=== PATIENT | male | born 1960 | race Hispanic/Latino ===

== ENCOUNTER 2017-03-06 22:07 | Emergency (ER) | payer OTHER ==
[2017-03-06 22:48] VITALS: BMI 26.8
[2017-03-06 22:51] VITALS: RESP 18
[2017-03-06] MEDS ORDERED: Oxycodone/Acetaminophen 5/325 mg Tab PO STA (23:34)
[2017-03-07] MEDS: Sodium Chloride 0.9% 500 ML IV STA ×2 (00:13→01:11)
--- NOTE | 2017-03-07 00:19 | ED PDOC ---
Arrival/HPI <Thomas Nash - Last Filed: 03/07/17 01:30> - General Historian: Patient - History of Present Illness Symptom Onset: Gradual Symptom Course: Unchanged Activities at Onset: Rest, Light Context: Home <Nerissa Vargas - Last Filed: 03/07/17 01:54> - General Chief Complaint: Dental Pain Time Seen by Provider: 03/06/17 23:34 - History of Present Illness Narrative History of Present Illness (Text): 03/06/17 23:30 56 year old male who presents to the Emergency department complaining of 2 day history of right-sided facial swelling and erythema. Patient states 2 days prior he was seen by a dentist and had a tooth extraction performed. Patient states he had some slight swelling prior to extractions but notes since then he has developed redness with worsening swelling and pain to the right face. Patient denies any trismus or drooling. Patient states he was placed on antibiotics for the past 2 days but is unsure of the name. Patient also denies any fever, chills, chest pain, shortness of breath, or any other complaints. Patient states he does not have any medical problems but notes he does not see a primary doctor. Patient was told he had high blood pressure, but notes he has attempted to manage it by diet. (Nerissa Vargas) Past Medical History - Provider Review Nursing Documentation Reviewed: Yes - Travel History Have you recently traveled outside [place] w/in the past 3 mons?: No - Infectious Disease Hx of Infectious Diseases: None - Tetanus Immunization Tetanus Immunization: Unknown - Cardiac Hx Hypertension: Yes - Psychiatric Hx Substance Use: No - Surgical History Hx Appendectomy: Yes - Anesthesia Hx Anesthesia: Yes Hx Anesthesia Reactions: No Hx Malignant Hyperthermia: No <Nerissa Vargas - Last Filed: 03/07/17 01:54> Family/Social History - Physician Review Nursing Documentation Reviewed: Yes Family/Social History: Unknown Family HX Smoking Status: Never Smoked Hx Alcohol Use: No Hx Substance Use: No <Nerissa Vargas - Last Filed: 03/07/17 01:54> Allergies/Home Meds <Thomas Nash - Last Filed: 03/07/17 01:30> <Nerissa Vargas - Last Filed: 03/07/17 01:54> Allergies/Adverse Reactions: Allergies Penicillins Allergy (Verified 08/23/17 22:48) RASH Home Medications: Home Meds Medication Instructions Recorded Confirmed No Known Home Med 03/06/17 03/06/17 Review of Systems - Physician Review All systems were reviewed & negative as marked: Yes - Review of Systems Constitutional: absent: Fevers ENT: Other (+right-sided facial swelling) Respiratory: Normal. absent: SOB, Cough Cardiovascular: Normal. absent: Chest Pain Gastrointestinal: Normal. absent: Abdominal Pain, Diarrhea, Nausea, Vomiting Musculoskeletal: absent: Back Pain, Neck Pain Skin: Normal. absent: Rash Neurological: Normal. absent: Headache, Dizziness Psychiatric: Normal. absent: Anxiety, Depression <AzoiaNerissa T - Last Filed: 03/07/17 01:54> Physical Exam Vital Signs Reviewed: Yes Temperature: Afebrile Blood Pressure: Normal Pulse: Regular Respiratory Rate: Normal Appearance: Positive for: Well-Appearing, Non-Toxic, Comfortable Pain Distress: None Mental Status: Positive for: Alert and Oriented X 3 - Systems Exam Head: Present: Normocephalic, Swelling (Right-sided facial edema with erythema, warmth, and induration extending from right inferior orbite to mandible.) Pupils: Present: PERRL Extroacular Muscles: Present: EOMI Conjunctiva: Present: Normal Ears: Present: Normal, NORMAL TM, Normal Canal. No: Erythema Mouth: Present: Moist Mucous Membranes, Normal Tounge (No swelling to tongue or floor of mouth), Other (Right upper molar (#17th tooth) extraction site with tenderness to gingiva around extraction site with some induration, no erythema, no active bleeding. No erythma noted within the mouth). No: Drooling, Trismus Pharnyx: Present: Normal. No: ERYTHEMA, EXUDATE, TONSILS ENLARGED, Uvular Deviation, Muffled/Hoarse Voice, Strider Nose (External): Present: Atraumatic Nose (Internal): Present: Normal Inspection Neck: Present: Normal Range of Motion. No: Meningeal Signs, MIDLINE TENDERNESS , Paraspinal Tenderness, Lymphadenopathy Respiratory/Chest: Present: Clear to Auscultation, Good Air Exchange. No: Respiratory Distress, Accessory Muscle Use Cardiovascular: Present: Regular Rate and Rhythm, Normal S1, S2. No: Murmurs Abdomen: Present: Normal Bowel Sounds. No: Tenderness, Distention, Peritoneal Signs Neurological: Present: GCS=15, Speech Normal Skin: Present: Warm, Dry, Normal Color. No: Rashes Psychiatric: Present: Alert, Oriented x 3, Normal Insight, Normal Concentration <Nerissa Vargas - Last Filed: 03/07/17 01:54> Vital Signs Temp Pulse Resp BP Pulse Ox 03/07/17 01:50 99.2 F 81 18 162/104 H 95 03/06/17 22:50 99.5 F 94 H 18 145/114 H 98 Medical Decision Making <Thomas Nash - Last Filed: 03/07/17 01:30> <Nerissa Vargas - Last Filed: 03/07/17 01:54> ED Course and Treatment: 03/06/17 23:30 Impression: 56 year old male complaining of right-sided facial swelling/erythema x 2 days s /p dental extraction. Plan: -- CBC -- CMP -- Blood cultures -- CT Maxillofacial with IV contrast -- Percocet for pain -- 500 cc NS -- Reassess and disposition Progress Notes: cbc; wbc:14.[address] maxillofacial bones; FINDINGS: Bones/joints: No acute fracture. Absence of the right second molar (tooth #17) with bony erosion and soft tissue air suggesting a dental space abscess. Soft tissues: Moderate soft tissue swelling from the right infraorbital rim to the level of the mandible. Infiltration of the soft tissues, without a discrete abscess. Orbits: Preserved. Sinuses: Mucoperiosteal thickening within the right maxillary sinus. Retention cyst within the left maxillary sinus. No air-fluid levels. IMPRESSION: A dental space abscess at the right second molar with infiltration of the surrounding soft tissues, without a discrete abscess. Inflammatory maxillary sinus disease. blood cultures pending clindamycin started IV. 03/07/17 01:[address] Sunshine (dental resident at [facility]; accepts transfer. (attending physician dr. Dotson.) case discussed with Beverly charge nurse in [facility] ER. accepting ER physician dr. Quintana. consent for transfer obtained. Results were discussed with the patient in depth. impression; dental abscess, facial cellulitis, leukocytosis transfer to [facility]. (Nerissa Vargas) - Lab Interpretations Lab Results: 03/07/17 00:05 08/24/17 00:05 Lab Results 03/07/17 00:05: WBC 14.2 H, RBC 4.99, Hgb 14.8, Hct 43.0, MCV 86.2, MCH 29.7, MCHC 34.4, RDW 13.8, Plt Count 273, MPV 11.6 H, Gran % 68.1 H, Lymph % (Auto) 19.9 L, [place] % (Auto) 10.4 H, Eos % (Auto) 1.2 L, Baso % (Auto) 0.4, Gran # 9.67 H, Lymph # 2.8, [place] # 1.5 H, Eos # 0.2, Baso # 0.05 03/07/17 00:05: Sodium 140, Potassium 3.8, Chloride 101, Carbon Dioxide 28, Anion Gap 15, BUN 14, Creatinine 1.1, Est GFR ( Amer) > 60, Est GFR (Non- Af Amer) > 60, Random Glucose 114 H, Calcium 9.9, Total Bilirubin 1.0, AST 43, ALT 48, Alkaline Phosphatase 70, Total Protein 8.4 H, Albumin 4.5, Globulin 3.9 , Albumin/Globulin Ratio 1.2 - RAD Interpretation Radiology Orders: 03/06/17 23:35 MAXILLOFACIAL W/CONTRAST [CT] Stat - Medication Orders Current Medication Orders: Clindamycin Phosphate 900 mg/ (Sodium Chloride) 106 mls @ 106 mls/hr IVPB STAT STA PRN Reason: Protocol Stop: 03/07/17 02:03 Last Admin: 03/07/17 01:40 Dose: 106 mls/hr Discontinued Medications Sodium Chloride (Sodium Chloride 0.9%) 500 mls @ 999 mls/hr IV .Q31M STA Stop: 03/07/17 00:05 Last Admin: 03/07/17 01:11 Dose: 999 mls/hr Oxycodone/Acetaminophen (Percocet 5/325 Mg Tab) 1 tab PO STAT STA Stop: 03/06/17 23:35 Last Admin: 03/07/17 00:12 Dose: 1 tab - PA / WET PLANT OPERATOR / Resident Statement SUSAN has reviewed & agrees with the documentation as recorded. SUSAN has examined the patient and agrees with the treatment plan. <Thomas Nash - Last Filed: 03/07/17 01:30> - Scribe Statement The provider has reviewed the documentation as recorded by the Scribe <Nerissa Vargas - Last Filed: 03/07/17 01:54> - Scribe Statement Yadira Angela Provider Scribe Attestation: All medical record entries made by the Scribe were at my direction and personally dictated by me. I have reviewed the chart and agree that the record accurately reflects my personal performance of the history, physical exam, medical decision making, and the department course for this patient. I have also personally directed, reviewed, and agree with the discharge instructions and disposition. (Nerissa Vargas) Disposition/Present on Arrival <Thomas Nash - Last Filed: 03/07/17 01:30> - Present on Arrival Any Indicators Present on Arrival: No History of DVT/PE: No History of Uncontrolled Diabetes: No Urinary Catheter: No History of Decub. Ulcer: No History Surgical Site Infection Following: None - Disposition Have Diagnosis and Disposition been Completed?: Yes Disposition Time: 01:49 Patient Plan: Transfer To ([facility] (accepting physician Dr. Quintana/ Dr. dotson) <Nerissa Vargas - Last Filed: 03/07/17 01:54> - Disposition Diagnosis: Dental abscess, Facial cellulitis, Leukocytosis, Hypertension Disposition: Trans to Other Acute Care Hosp Patient Problems: Current Active Problems Problem Status Onset Dental abscess Acute Facial cellulitis Acute Leukocytosis Acute Condition: FAIR Referrals: [facility] Kelley Reshira, [Primary Care Provider] - Follow up with primary Forms: [employer] ([employer])
[2017-03-07 00:37] LABS: ALB/GLOB RATIO 1.2 (1.1-1.8); ALKALINE PHOSPHATASE 70 U/L (38-133); ALT/SGPT 48 U/L (7-56); AST/SGOT 43 U/L (15-59); BLOOD UREA NITROGEN 14 mg/dL (7-21); CALCIUM 9.9 mg/dL (8.4-10.5); CARBON DIOXIDE 28 mmol/L (21-33); CHLORIDE 101 mmol/L (95-110); GFR AFRICAN-AMERICAN > 60; GLUCOSE,RANDOM 114 mg/dL (70-110); POTASSIUM 3.8 mmol/L (3.6-5.0); SODIUM 140 mmol/L (132-148); TOTAL PROTEIN 8.4 g/dL (5.8-8.3)
[2017-03-07 00:44] LABS: BASO # 0.05 K/mm3 (0.0-2.0); BASO % 0.4 % (0.0-3.0); EOS # 0.2 (0.0-0.7); EOS % 1.2 % (1.5-5.0); GRAN # 9.67 (1.4-6.5); GRAN % 68.1 % (50.0-68.0); LYMPH # 2.8 (1.2-3.4); LYMPH % 19.9 % (22.0-35.0); MEAN CELL VOLUME 86.2 fl (80.0-105.0); MEAN CORPUSCULAR HEMOGLOBIN 29.7 pg (25.0-35.0); MEAN CORPUSCULAR HGB CONC 34.4 g/dl (31.0-37.0); MEAN PLATELET VOLUME 11.6 fl (7.0-11.0); MONO # 1.5 (0.1-0.6); MONO % 10.4 % (1.0-6.0); RED CELL DISTRIBUTION WIDTH 13.8 % (11.5-14.5); WHITE BLOOD COUNT 14.2 10^3/ul (4.5-11.0)
--- NOTE | 2017-03-07 00:59 | CT ---
EXAM: CT Maxillofacial With Intravenous Contrast CLINICAL HISTORY: 56 years old, male; Signs and symptoms; Mass, lump, or swelling; Maxilla; Patient HX: Tooth extraction. Exam was performed with out contrast media. ; Additional info: Right sided facial swelling/erythema S/P extractio TECHNIQUE: Axial computed tomography images of the face with intravenous contrast. All CT scans at this facility use one or more dose reduction techniques, viz.: automated exposure control; ma/kV adjustment per patient size (including targeted exams where dose is matched to indication; i.e. head); or iterative reconstruction technique. Coronal and sagittal reformatted images were created and reviewed. CONTRAST: 0 mL of with out administered intravenously. COMPARISON: No relevant prior studies available. FINDINGS: Bones/joints: No acute fracture. Absence of the right second molar (tooth #17) with bony erosion and soft tissue air suggesting a dental space abscess. Soft tissues: Moderate soft tissue swelling from the right infraorbital rim to the level of the mandible. Infiltration of the soft tissues, without a discrete abscess. Orbits: Preserved. Sinuses: Mucoperiosteal thickening within the right maxillary sinus. Retention cyst within the left maxillary sinus. No air-fluid levels. IMPRESSION: A dental space abscess at the right second molar with infiltration of the surrounding soft tissues, without a discrete abscess. Inflammatory maxillary sinus disease.
[2017-03-07 01:52] VITALS: BP 162/104; PULSE 81; TEMP 99.2; O2SAT 95
== END 2017-03-07 02:29 | disposition short-term general hospital (02) ==
LOC: ED 22:07
DX: K04.7 Periapical abscess without sinus (principal); L03.211 Cellulitis of face; I10 Essential (primary) hypertension; D72.829 Elevated white blood cell count, unspecified
CPT/HCPCS: 70488; 80053; 85025; 87040; 96361; 96365; 99283; J7040

== ENCOUNTER 2017-04-21 20:43 | Inpatient (IN) | payer OTHER ==
[2017-04-21 20:48] VITALS: BMI 25.7
--- NOTE | 2017-04-21 21:17 | ED PDOC ---
Arrival/HPI - General Chief Complaint: Male Genitourinary Time Seen by Provider: 04/21/17 21:08 Historian: Patient - History of Present Illness Narrative History of Present Illness (Text): 04/21/17 21:12 Alban Melchor is a 56 year old male, whose past medical history includes kidney stones, who presents to the emergency department complaining of sharp LLQ abdominal pain and left-sided flank pain for 2 days. Patient also notes that he has noticed some blood in his urine. Patient denies any fever, chills, chest pain, shortness of breath, nausea, vomiting, diarrhea, neck pain, headache , dizziness, or any other complaints. Time/Duration: < week Symptom Onset: Gradual Symptom Course: Unchanged Severity Level: Mild Activities at Onset: Light Context: Home Past Medical History - Provider Review Nursing Documentation Reviewed: Yes - Infectious Disease Hx of Infectious Diseases: None - Tetanus Immunization Tetanus Immunization: Unknown - Cardiac Hx Hypertension: Yes - Pulmonary Hx Respiratory Disorders: No - Neurological Hx Neurological Disorder: No - HEENT Hx HEENT Disorder: No - Renal Other/Comment: stones - Endocrine/Metabolic Hx Endocrine Disorders: No - Hematological/Oncological Hx Blood Disorders: No - Integumentary Hx Dermatological Disorder: No - Musculoskeletal/Rheumatological Hx Musculoskeletal Disorders: No - Gastrointestinal Hx Gastrointestinal Disorders: No - Genitourinary/Gynecological Hx Genitourinary Disorders: No - Psychiatric Hx Psychophysiologic Disorder: No Hx Substance Use: No - Surgical History Hx Appendectomy: Yes - Anesthesia Hx Anesthesia: Yes Hx Anesthesia Reactions: No Hx Malignant Hyperthermia: No Family/Social History - Physician Review Nursing Documentation Reviewed: Yes Family/Social History: No Known Family HX Smoking Status: Never Smoked Hx Alcohol Use: No Hx Substance Use: No Allergies/Home Meds Allergies/Adverse Reactions: Allergies Penicillins Allergy (Verified 04/21/17 20:48) RASH Home Medications: Home Meds Medication Instructions Recorded Confirmed No Known Home Med 03/06/17 04/21/17 Review of Systems - Physician Review All systems were reviewed & negative as marked: Yes - Review of Systems Constitutional: absent: Fevers, Night Sweats Eyes: absent: Vision Changes ENT: absent: Hearing Changes Respiratory: absent: SOB, Cough Cardiovascular: absent: Chest Pain Gastrointestinal: Abdominal Pain Genitourinary Male: Urinary Output Changes Musculoskeletal: Back Pain Skin: absent: Rash, Pruritis Neurological: absent: Headache, Dizziness Endocrine: absent: Diaphoresis Hemo/Lymphatic: absent: Adenopathy Psychiatric: absent: Depression Physical Exam Vital Signs Reviewed: Yes Vital Signs Temp Pulse Resp BP Pulse Ox 04/22/17 03:02 18 99 04/22/17 02:56 98.9 F 95 H 17 140/89 99 04/21/17 20:49 99.5 F 86 18 176/107 H 98 04/21/17 20:48 99.5 F 91 H 18 176/107 H 98 Temperature: Afebrile Blood Pressure: Hypertensive Pulse: Tachycardic Respiratory Rate: Normal Appearance: Positive for: Well-Appearing, Non-Toxic, Comfortable Pain Distress: None Mental Status: Positive for: Alert and Oriented X 3 - Systems Exam Head: Present: Atraumatic, Normocephalic Pupils: Present: PERRL Extroacular Muscles: Present: EOMI Conjunctiva: Present: Normal Mouth: Present: Moist Mucous Membranes Neck: Present: Normal Range of Motion Respiratory/Chest: Present: Clear to Auscultation, Good Air Exchange. No: Respiratory Distress, Accessory Muscle Use Cardiovascular: Present: Regular Rate and Rhythm, Normal S1, S2. No: Murmurs Abdomen: Present: Normal Bowel Sounds. No: Tenderness, Distention, Peritoneal Signs Back: Present: Normal Inspection, CVA Tenderness Upper Extremity: Present: Normal Inspection. No: Cyanosis, Edema Lower Extremity: Present: Normal Inspection. No: Edema Neurological: Present: GCS=15, CN II-XII Intact, Speech Normal Skin: Present: Warm, Dry, Normal Color. No: Rashes Psychiatric: Present: Alert, Oriented x 3, Normal Insight, Normal Concentration Medical Decision Making ED Course and Treatment: 04/21/17 21:12 Impression: 56 year old male complaining of sharp LLQ abdominal pain and left-sided flank pain since yesterday. Differential Diagnosis included but are not limited to: Kidney stones Plan: -- Abdomen and Pelvis CT w/o contrast -- Urinalysis -- Labs -- Toradol and IV fluids -- Reassess and disposition Prior Visits: Notes and results from previous visits were reviewed. Patient last seen in the ED on 03/06/17 for 2 day history of right-sided facial swelling and erythema. Patient was transferred to [facility]. Progress Notes: 04/21/17 23:59 Case discussed with residential sales rep and Dr. Church, who accepts patient to hospitalist service. 04/22/17 00:12 CT Abdomen and Pelvis Without Intravenous Contrast Creator : KEITH DOMINGO FINDINGS: Lower thorax: The bilateral lung bases are clear. ABDOMEN: Liver: No acute findings Gallbladder and bile ducts: No acute finding. No calcified stones. No intra-extrahepatic biliary ductal dilation. Pancreas: Limited evaluation secondary to the lack of intravenous contrast. Spleen: No acute findings. Adrenals: No acute findings. Kidneys and ureters: Left sided hydroureteronephrosis extending to the distal left ureter where a 6 mm stone is identified. The right kidney and ureter are unremarkable. PELVIS: Bladder: No acute findings. Reproductive: No acute findings. Appendix: The appendix is not definitively visualized, however no pericecal inflammatory change is identified to suggest the presence of acute appendicitis. ABDOMEN and PELVIS: Stomach and bowel: No acute findings. Peritoneum: No acute findings. Lymph nodes: Limited evaluation without intravenous contrast. Vasculature: No aortic aneurysm. Bones: No acute fracture. IMPRESSION: Left-sided hydroureteronephrosis secondary to a 6 mm stone in the distal left ureter. - Lab Interpretations Lab Results: 04/21/17 21:40 04/21/17 21:40 Lab Results 04/21/17 21:40: WBC 11.1 H D, RBC 4.87, Hgb 14.2, Hct 42.2, MCV 86.7, MCH 29.2, MCHC 33.6, RDW 13.9, Plt Count 238, MPV 11.2 H 04/21/17 21:40: Sodium 142, Potassium 3.8, Chloride 103, Carbon Dioxide 29, Anion Gap 14, BUN 19, Creatinine 1.4, Est GFR ( Amer) > 60, Est GFR (Non- Af Amer) 53, Random Glucose 89, Calcium 9.7, Total Bilirubin 1.0, AST 43, ALT 54 , Alkaline Phosphatase 58, Total Protein 8.0, Albumin 4.7, Globulin 3.3, Albumin /Globulin Ratio 1.4 04/21/17 21:40: Urine Color Yellow, Urine Appearance Sl cloudy, Urine pH 7.5, Ur Specific [place] 1.015, Urine Protein Trace H, Urine Glucose (UA) Negative, Urine Ketones Negative, Urine Blood Large H, Urine Nitrate Negative, Urine Bilirubin Negative, Urine Urobilinogen 0.2, Ur Leukocyte Esterase Negative, Urine RBC Tntc, Urine WBC 2 - 5, Ur Epithelial Cells 3 - 4, Urine Bacteria Mod I have reviewed the lab results: Yes - RAD Interpretation Radiology Orders: 04/21/17 21:15 ABD & PELVIS W/O PO OR IV CONT [CT] Stat - Medication Orders Current Medication Orders: Acetaminophen (Tylenol 325mg Tab) 650 mg PO Q6H PRN PRN Reason: Pain, Mild (1-3) Hydromorphone HCl (Dilaudid) 0.5 mg IVP Q6H PRN PRN Reason: Pain, severe (8-10) Sodium Chloride (Sodium Chloride 0.9%) 1,000 mls @ 100 mls/hr IV .Q10H VEE Last Admin: 04/21/17 21:44 Dose: 100 mls/hr eMAR Start Stop Document 04/21/17 21:44 YP (Rec: 04/21/17 21:44 YP [id number]) Intravenous Solution Start Date 04/21/17 Start Time 21:44 Sodium Chloride (Sodium Chloride 0.9%) 1,000 mls @ 100 mls/hr IV .Q10H VEE Pantoprazole Sodium (Protonix Inj) 40 mg IVP DAILY VEE Tramadol/Acetaminophen (Ultracet 37.5/325 Mg) 1 tab PO Q6H PRN PRN Reason: Pain, moderate (4-7) Last Admin: 04/22/17 03:47 Dose: 1 tab MAR Pain Assessment Document 04/22/17 03:47 KT (Rec: 04/22/17 03:48 [id number] Pain Reassessment Is this a pain reassessment? No Presence of Pain Presence of Pain Yes Pain Scale Used Pain Scale Used Numeric Location Left, Right or Bilateral Left Upper or Lower Lower Pain Location Body Site Abdomen Discontinued Medications Hydralazine HCl (Apresoline) 10 mg PO ONCE ONE Stop: 04/22/17 03:48 Last Admin: 04/22/17 03:58 Dose: 10 mg MAR Pulse and Blood Pressure Document 04/22/17 03:58 KT (Rec: 04/22/17 03:58 KT [id number]) Pulse Pulse Rate (60-90) 78 Blood Pressure Blood Pressure (100/60-150/90) 166/114 Ketorolac Tromethamine (Toradol) 30 mg IVP ONCE ONE Stop: 04/21/17 21:16 Last Admin: 04/21/17 21:44 Dose: 30 mg MAR Pain Assessment Document 04/21/17 21:44 YP (Rec: 04/21/17 21:45 YP [id number]) Pain Reassessment Is this a pain reassessment? No Sleep Is patient sleeping during reassessment? No Presence of Pain Presence of Pain Yes IVP Administration Document 04/21/17 21:44 YP (Rec: 04/21/17 21:45 YP [id number]) Charges for Administration # of IVP Administrations 1 Morphine Sulfate (Morphine) 4 mg IVP STAT STA Stop: 04/21/17 23:40 Last Admin: 04/21/17 23:53 Dose: 4 mg MAR Pain Assessment Document 04/21/17 23:53 [facility] (Rec: 04/21/17 23:[email or web address] Pain Reassessment Is this a pain reassessment? No Sleep Is patient sleeping during reassessment? No Presence of Pain Presence of Pain Yes Pain Scale Used Pain Scale Used Numeric Location Pain Location Body Site Back Description Description Constant Intensity of Pain at present 9 Pain Behavior Facial Grimacing Alleviating Factors/Management Position Change Techniques Alleviating Factors Medication IVP Administration Document 04/21/17 23:53 [facility] (Rec: 04/21/17 23:[email or web address] Charges for Administration # of IVP Administrations 1 Ondansetron HCl (Zofran Inj) 4 mg IVP ONCE ONE Stop: 04/21/17 23:40 Last Admin: 04/22/17 02:58 Dose: Not Given Non-Admin Reason: Patient Refused IVP Administration Document 04/22/17 02:58 [facility] (Rec: 04/22/17 02:[email or web address] Charges for Administration # of IVP Administrations 1 - Scribe Statement The provider has reviewed the documentation as recorded by the Libertadiblindsey Avendano Provider Scribe Attestation: All medical record entries made by the Scribe were at my direction and personally dictated by me. I have reviewed the chart and agree that the record accurately reflects my personal performance of the history, physical exam, medical decision making, and the department course for this patient. I have also personally directed, reviewed, and agree with the discharge instructions and disposition. Disposition/Present on Arrival - Present on Arrival Any Indicators Present on Arrival: No History of DVT/PE: No History of Uncontrolled Diabetes: No Urinary Catheter: No History of Decub. Ulcer: No History Surgical Site Infection Following: None - Disposition Have Diagnosis and Disposition been Completed?: Yes Diagnosis: Renal colic on right side, Intractable pain Disposition: HOSPITALIZED Disposition Time: 23:57 Patient Plan: Observation Patient Problems: Current Active Problems Problem Status Onset Intractable pain Acute Renal colic on right side Acute Condition: STABLE
[2017-04-21] MEDS: Sodium Chloride 0.9% 1,000 ML IV SCH (21:44)
[2017-04-21 22:06] LABS: ALB/GLOB RATIO 1.4 (1.1-1.8); ALKALINE PHOSPHATASE 58 U/L (38-126); ALT/SGPT 54 U/L (7-56); AST/SGOT 43 U/L (17-59); BLOOD UREA NITROGEN 19 mg/dL (7-21); CALCIUM 9.7 mg/dL (8.4-10.5); CARBON DIOXIDE 29 mmol/L (21-33); CHLORIDE 103 mmol/L (98-107); GFR AFRICAN-AMERICAN > 60; GLUCOSE,RANDOM 89 mg/dL (70-110); POTASSIUM 3.8 mmol/L (3.6-5.0); SODIUM 142 mmol/L (132-148)
[2017-04-21 22:11] LABS: HEMATOCRIT 42.2 % (42.0-52.0); MEAN CELL VOLUME 86.7 fl (80.0-105.0); MEAN CORPUSCULAR HEMOGLOBIN 29.2 pg (25.0-35.0); MEAN CORPUSCULAR HGB CONC 33.6 g/dl (31.0-37.0); MEAN PLATELET VOLUME 11.2 fl (7.0-11.0); RED CELL DISTRIBUTION WIDTH 13.9 % (11.5-14.5); WHITE BLOOD COUNT 11.1 10^3/ul (4.5-11.0)
[2017-04-21 22:12] LABS: PH,URINE 7.5 (4.7-8.0); URINE BILIRUBIN NEGATIVE (NEGATIVE); URINE BLOOD LARGE (NEGATIVE); URINE GLUCOSE (UA) NEGATIVE (NEGATIVE); URINE KETONE NEGATIVE (NEGATIVE); URINE LEUKOCYTE ESTERASE NEGATIVE Leu/uL (NEGATIVE); URINE PROTEIN TRACE mg/dL (<30 mg/dL); URINE UROBILINOGEN 0.2 E.U./dL (<1 E.U./dL)
[2017-04-21 22:14] LABS: URINE APPEARANCE SL CLOUDY (CLEAR); URINE COLOR YELLOW (YELLOW)
[2017-04-21 22:26] LABS: URINE BACTERIA MOD (NEG); URINE RBC TNTC /hpf (0-2)
--- NOTE | 2017-04-21 23:20 | CT ---
EXAM: CT Abdomen and Pelvis Without Intravenous Contrast CLINICAL HISTORY: 56 years old, male; Pain; Abdominal pain; Acute; Additional info: Left flank pain TECHNIQUE: Axial computed tomography images of the abdomen and pelvis without intravenous contrast. All CT scans at this facility use one or more dose reduction techniques, viz.: automated exposure control; ma/kV adjustment per patient size (including targeted exams where dose is matched to indication; i.e. head); or iterative reconstruction technique. Coronal and sagittal reformatted images were created and reviewed. COMPARISON: No relevant prior studies available. FINDINGS: Lower thorax: The bilateral lung bases are clear. ABDOMEN: Liver: No acute findings Gallbladder and bile ducts: No acute finding. No calcified stones. No intra-extrahepatic biliary ductal dilation. Pancreas: Limited evaluation secondary to the lack of intravenous contrast. Spleen: No acute findings. Adrenals: No acute findings. Kidneys and ureters: Left sided hydroureteronephrosis extending to the distal left ureter where a 6 mm stone is identified. The right kidney and ureter are unremarkable. PELVIS: Bladder: No acute findings. Reproductive: No acute findings. Appendix: The appendix is not definitively visualized, however no pericecal inflammatory change is identified to suggest the presence of acute appendicitis. ABDOMEN and PELVIS: Stomach and bowel: No acute findings. Peritoneum: No acute findings. Lymph nodes: Limited evaluation without intravenous contrast. Vasculature: No aortic aneurysm. Bones: No acute fracture. IMPRESSION: Left-sided hydroureteronephrosis secondary to a 6 mm stone in the distal left ureter.
[2017-04-21] MEDS ORDERED: Morphine 4 mg/ml ISec IVP STA (23:39)
[2017-04-22] MEDS ORDERED: TraMADol/Apap 37.5/325 mg Tab PO PRN (00:42)
[2017-04-22] MEDS ORDERED: HYDROmorphone 0.5 mg/0.5 ml ISec IVP PRN ×2 (00:42→12:01)
--- NOTE | 2017-04-22 01:05 | CP.PCM.HP ---
<ADRIANNA ALFARO - Last Filed: 04/22/17 01:20> History of Present Illness - History of Present Illness History of Present Illness: CC: Left Flank Pain HPI: Pt is a 56 yo male with PMH of nephrolithiasis and diet controlled HTN presents with 2 day history of sharp and constant left flank pain. Pt states that left flank pain was of insidious onset and radiates to his left groin. Today, patient noticed blood in his urine. Pt denies dysuria or increased flank pain while urinating. Pt took Mobic today for the pain, which provided minimal relief. Pt reports he had a similar instance of left flank pain 4 years ago, in which he was evaluated at a hospital. He said that the stone was small and resolved without surgical/procedural intervention. Pt denied CP, SOB, n/v/d, abdominal other than left groin, constipation, fever, chills, dizziness, [place], fatigue, discharge, or shayla blood. PMD: None PMHx: nephrolithiasis, diet-controlled HTN Surg: None FHx: Non-contributory All: Penicillin (angioedema) SH: Denied tobacco, EtOH, and Illicit Drug use Medications: none Present on Admission - Present on Admission Any Indicators Present on Admission: No Review of Systems - Review of Systems All systems: reviewed and no additional remarkable complaints except (what is stated in HPI.) Past Patient History - Infectious Disease Hx of Infectious Diseases: None - Tetanus Immunizations Tetanus Immunization: Unknown - Past Social History Smoking Status: Never Smoked - CARDIAC Hx Hypertension: Yes - PULMONARY Hx Respiratory Disorders: No - NEUROLOGICAL Hx Neurological Disorder: No - HEENT Hx HEENT Problems: No - RENAL Other/Comment: stones - ENDOCRINE/METABOLIC Hx Endocrine Disorders: No - HEMATOLOGICAL/ONCOLOGICAL Hx Blood Disorders: No - INTEGUMENTARY Hx Dermatological Problems: No - MUSCULOSKELETAL/RHEUMATOLOGICAL Hx Musculoskeletal Disorders: No - GASTROINTESTINAL Hx Gastrointestinal Disorders: No - GENITOURINARY/GYNECOLOGICAL Hx Genitourinary Disorders: No - PSYCHIATRIC Hx Psychophysiologic Disorder: No Hx Substance Use: No - SURGICAL HISTORY Hx Appendectomy: Yes - ANESTHESIA Hx Anesthesia: Yes Hx Anesthesia Reactions: No Hx Malignant Hyperthermia: No Meds Allergies/Adverse Reactions: Allergies Allergy/AdvReac Type Severity Reaction Status Date / Time Penicillins Allergy RASH Verified 04/21/17 20:48 Physical Exam - Constitutional Appears: No Acute Distress - Head Exam Head Exam: ATRAUMATIC, NORMOCEPHALIC - Eye Exam Eye Exam: EOMI, PERRL - ENT Exam ENT Exam: Mucous Membranes Moist - Neck Exam Neck exam: Positive for: Full Rom. Negative for: Lymphadenopathy, Tenderness, Thyromegaly - Respiratory Exam Respiratory Exam: Clear to Auscultation Bilateral. absent: Rales, Rhonchi, Wheezes - Cardiovascular Exam Cardiovascular Exam: RRR. absent: Diastolic murmur, Gallop, Rubs, Systolic Murmur - GI/Abdominal Exam GI & Abdominal Exam: Normal Bowel Sounds, Soft. absent: Distended, Guarding, Rebound, Tenderness - Extremities Exam Extremities exam: Positive for: normal inspection - Back Exam Back exam: CVA tenderness (L). absent: CVA tenderness (R), paraspinal tenderness, vertebral tenderness - Neurological Exam Neurological exam: Alert, CN II-XII Intact, Oriented x3 - Psychiatric Exam Psychiatric exam: Normal Affect, Normal Mood - Skin Skin Exam: Dry, Intact, Normal Color, Warm Results - Vital Signs Recent Vital Signs: Last Vital Signs Temp 99.5 F 04/21/17 20:49 Pulse 86 04/21/17 20:49 Resp 18 04/21/17 20:49 BP 176/107 H 04/21/17 20:49 Pulse Ox 98 04/21/17 20:49 - Labs Result Diagrams: 04/21/17 21:40 04/21/17 21:40 Assessment & Plan - Assessment and Plan (Free Text) Assessment: 56 yo M with PMH of nephrolithiasis admitted for evaluation and treatment for left urethrolithiasis/hydroureteronephrosis. Plan: 1. Left Ureterolithiasis, L Hydroureteronephrosis - CT showed left hydroureteronephrosis 2/2 6 mm stone in distal left ureter - UA showed large blood - Urology consulted - Strain urine - Repeat CBC in AM - Pain control 2. HTN - Possibly elevated 2/2 to pain - Heart healthy diet, 2 gm Na - Monitor 3. KRISTI - Cr 1.4 likely 2/2 to ureterolithiasis - Monitor GI/DVT PPx - Protonix - SCDs Pt was seen and discussed in detail with Dr. Church. Merrill Alfaro, PGY1 <Sanchez Church - Last Filed: 04/22/17 03:49> Results - Vital Signs Recent Vital Signs: Last Vital Signs Temp 98.9 F 04/22/17 02:56 Pulse 95 H 04/22/17 02:56 Resp 18 04/22/17 03:02 BP 140/89 04/22/17 02:56 Pulse Ox 99 04/22/17 03:02 - Labs Result Diagrams: 04/21/17 21:40 04/21/17 21:40 Attending/Attestation - Attestation I have personally seen and examined this patient.: Yes I have fully participated in the care of the patient.: Yes I have reviewed all pertinent clinical information: Yes Notes (Text): 04/22/17 03:49 Patient was seen when he was in the ER. Agree with history, physical examination, assessment and plan.
[2017-04-22] MEDS ORDERED: Sodium Chloride 0.9% 1,000 ML IV SCH ×2 (07:00→18:14)
[2017-04-22 07:56] LABS: ALB/GLOB RATIO 1.5 (1.1-1.8); BILIRUBIN,TOTAL 1.3 mg/dL (0.2-1.3); CALCIUM 9.1 mg/dL (8.4-10.5); MAGNESIUM 1.9 mg/dL (1.7-2.2); PHOSPHOROUS 3.5 mg/dL (2.5-4.5); POTASSIUM 4.1 mmol/L (3.6-5.0); TOTAL PROTEIN 7.5 g/dL (5.8-8.3)
[2017-04-22] MEDS: Sodium Chloride 0.9% 1,000 ML IV SCH ×2 (14:28→22:43)
[2017-04-23] MEDS ORDERED: Lidocaine 2% Jelly (Uro-Jet) ONE (07:43)
[2017-04-23] MEDS ORDERED: Iohexol 240 (50 ml) ONE (07:43)
[2017-04-23] MEDS ORDERED: Propofol 10 mg/ml Inj (20 ML) ONE (07:54)
[2017-04-23] MEDS ORDERED: Midazolam 2 MG/2 ML VIAL ONE (07:54)
[2017-04-23] MEDS ORDERED: cefTRIAXone 1 gm 1 GM/100 ML BAG IVPB STA (07:54)
[2017-04-23] MEDS ORDERED: Oxycodone/Acetaminophen 5/325 mg Tab PO PRN (07:55)
[2017-04-23] MEDS ORDERED: Ciprofloxacin 400mg/200ml D5W 400 MG/200 ML BAG IVPB ONE (08:06)
[2017-04-23] MEDS ORDERED: Morphine 2 mg/ml ISec IVP PRN (08:36)
[2017-04-23] MEDS ORDERED: Lactated Ringer's 500 ML IV SCH (08:45)
--- NOTE | 2017-04-23 10:08 | RAD ---
PROCEDURE: Retrograde pyelogram HISTORY: LT URETERAL STONE COMPARISON: TECHNIQUE: Fluoroscopy was provided in the operating room. 24 seconds of fluoro time were utilized. 7 images were submitted FINDINGS: The study shows placement of a left ureteral stent IMPRESSION: As above
[2017-04-23] MEDS: Sodium Chloride 0.9% 1,000 ML IV SCH (10:43)
[2017-04-23 15:05] VITALS: RESP 20; TEMP 98
[2017-04-23 15:07] VITALS: O2SAT 98
[2017-04-23 15:36] VITALS: BP 148/104; PULSE 90
--- NOTE | 2017-04-23 15:51 | CP.PCM.DIS ---
<Jeronimo Fatima - Last Filed: 04/23/17 15:51> Provider - Provider Date of Admission: 04/22/17 18:31 Attending physician: Toi Moeller MD Primary care physician: NO PRIMARY CARE PROVIDER Time Spent in preparation of Discharge (in minutes): 45 Hospital Course - Lab Results Lab Results: Most Recent Lab Values WBC 11.1 10^3/ul (4.5-11.0) H D 04/21/17 21:40 RBC 4.87 10^6/uL (3.5-6.1) 04/21/17 21:40 Hgb 14.2 g/dL (14.0-18.0) 04/21/17 21:40 Hct 42.2 % (42.0-52.0) 04/21/17 21:40 MCV 86.7 fl (80.0-105.0) 04/21/17 21:40 MCH 29.2 pg (25.0-35.0) 04/21/17 21:40 MCHC 33.6 g/dl (31.0-37.0) 04/21/17 21:40 RDW 13.9 % (11.5-14.5) 04/21/17 21:40 Plt Count 238 10^3/uL (120.0-450.0) 04/21/17 21:40 MPV 11.2 fl (7.0-11.0) H 04/21/17 21:40 Sodium 140 mmol/L (132-148) 04/22/17 07:20 Potassium 4.1 mmol/L (3.6-5.0) 04/22/17 07:20 Chloride 103 mmol/L (98-107) 04/22/17 07:20 Carbon Dioxide 26 mmol/L (21-33) 04/22/17 07:20 Anion Gap 15 (10-20) 04/22/17 07:20 BUN 19 mg/dL (7-21) 04/22/17 07:20 Creatinine 1.5 mg/dL (0.8-1.5) 04/22/17 07:20 Est GFR ( Amer) 59 04/22/17 07:20 Est GFR (Non-Af Amer) 49 04/22/17 07:20 Random Glucose 124 mg/dL (70-110) H 04/22/17 07:20 Calcium 9.1 mg/dL (8.4-10.5) 04/22/17 07:20 Phosphorus 3.5 mg/dL (2.5-4.5) 04/22/17 07:20 Magnesium 1.9 mg/dL (1.7-2.2) 04/22/17 07:20 Total Bilirubin 1.3 mg/dL (0.2-1.3) 04/22/17 07:20 AST 38 U/L (17-59) 04/22/17 07:20 ALT 44 U/L (7-56) 04/22/17 07:20 Alkaline Phosphatase 55 U/L (38-126) 04/22/17 07:20 Total Protein 7.5 g/dL (5.8-8.3) 04/22/17 07:20 Albumin 4.5 g/dL (3.0-4.8) 04/22/17 07:20 Globulin 3.1 gm/dL 04/22/17 07:20 Albumin/Globulin Ratio 1.5 (1.1-1.8) 04/22/17 07:20 Urine Color Yellow (YELLOW) 04/21/17 21:40 Urine Appearance Sl cloudy (CLEAR) 04/21/17 21:40 Urine pH 7.5 (4.7-8.0) 04/21/17 21:40 Ur Specific [place] 1.015 (1.005-1.035) 04/21/17 21:40 Urine Protein Trace mg/dL (<30 mg/dL) H 04/21/17 21:40 Urine Glucose (UA) Negative mg/dL (NEGATIVE) 04/21/17 21:40 Urine Ketones Negative mg/dL (NEGATIVE) 04/21/17 21:40 Urine Blood Large (NEGATIVE) H 04/21/17 21:40 Urine Nitrate Negative (NEGATIVE) 04/21/17 21:40 Urine Bilirubin Negative (NEGATIVE) 04/21/17 21:40 Urine Urobilinogen 0.2 E.U./dL (<1 E.U./dL) 04/21/17 21:40 Ur Leukocyte Esterase Negative John/uL (NEGATIVE) 04/21/17 21:40 Urine RBC Tntc /hpf (0-2) 04/21/17 21:40 Urine WBC 2 - 5 /hpf (0-6) 04/21/17 21:40 Ur Epithelial Cells 3 - 4 /hpf (0-5) 04/21/17 21:40 Urine Bacteria Mod (NEG) 04/21/17 21:40 - Hospital Course Hospital Course: 56M with PMH of nephrolithiasis and diet controlled HTN presents with 2 day history of sharp and constant left flank pain. Pt states that left flank pain was of insidious onset and radiates to his left groin. Pt noticed blood in his urine. Denied dysuria increased flank pain. Pt took mobic with minimal relief. CT scan revealed 6mm stone. Urology was consulted and patient was taken to the OR the next day for Left retrograde peylogram and insertion of left ureteral stent. Pt tolerated the procedure well with minimal pain and is in stable condition. Patient cleared for dishcarge in stable condition on flomax, norvasc, and antibiotics. Important for patient to follow up tomorrow at 11am with Urology. Discharge Exam - Head Exam Head Exam: ATRAUMATIC, NORMOCEPHALIC - Eye Exam Eye Exam: Normal appearance - ENT Exam ENT Exam: Mucous Membranes Moist - Respiratory Exam Respiratory Exam: NORMAL BREATHING PATTERN. absent: Accessory Muscle Use, Chest Wall Tenderness, Respiratory Distress - Cardiovascular Exam Cardiovascular Exam: +S1, +S2. absent: Bradycardia, Tachycardia - GI/Abdominal Exam GI & Abdominal Exam: Normal Bowel Sounds, Soft. absent: Firm, Rigid, Tenderness - Extremities Exam Extremities exam: normal inspection - Back Exam Back exam: absent: CVA tenderness (L), CVA tenderness (R) - Neurological Exam Neurological exam: Alert, Oriented x3 - Skin Skin Exam: Dry, Normal Color Discharge Plan - Discharge Medications Prescriptions: amLODIPine [Norvasc] 5 mg PO DAILY 14 Days tab Tamsulosin HCl [Flomax] 0.4 mg PO ONCE 5 Days cap.er.24h - Follow Up Plan Condition: STABLE Disposition: HOME/ ROUTINE Instructions: Pneumococcal Vaccine for Adults (DC), Cystoscopy (DC), Renal Colic (GEN), Influenza Vaccine (DC), Urethral Stent Placement (DC) Additional Instructions: Follow up with Urology at 1100 tomorrow morning Referrals: PCP,NO [Primary Care Provider] - Eddie Gibbs MD [Staff Provider] - <Toi Moeller - Last Filed: 04/24/17 06:51> Provider - Provider Date of Admission: 04/22/17 18:31 Attending physician: Toi Moeller MD Primary care physician: NO PRIMARY CARE PROVIDER Hospital Course - Lab Results Lab Results: Most Recent Lab Values WBC 11.1 10^3/ul (4.5-11.0) H D 04/21/17 21:40 RBC 4.87 10^6/uL (3.5-6.1) 04/21/17 21:40 Hgb 14.2 g/dL (14.0-18.0) 04/21/17 21:40 Hct 42.2 % (42.0-52.0) 04/21/17 21:40 MCV 86.7 fl (80.0-105.0) 04/21/17 21:40 MCH 29.2 pg (25.0-35.0) 04/21/17 21:40 MCHC 33.6 g/dl (31.0-37.0) 04/21/17 21:40 RDW 13.9 % (11.5-14.5) 04/21/17 21:40 Plt Count 238 10^3/uL (120.0-450.0) 04/21/17 21:40 MPV 11.2 fl (7.0-11.0) H 04/21/17 21:40 Sodium 140 mmol/L (132-148) 04/22/17 07:20 Potassium 4.1 mmol/L (3.6-5.0) 04/22/17 07:20 Chloride 103 mmol/L (98-107) 04/22/17 07:20 Carbon Dioxide 26 mmol/L (21-33) 04/22/17 07:20 Anion Gap 15 (10-20) 04/22/17 07:20 BUN 19 mg/dL (7-21) 04/22/17 07:20 Creatinine 1.5 mg/dL (0.8-1.5) 04/22/17 07:20 Est GFR ( Amer) 59 04/22/17 07:20 Est GFR (Non-Af Amer) 49 04/22/17 07:20 Random Glucose 124 mg/dL (70-110) H 04/22/17 07:20 Calcium 9.1 mg/dL (8.4-10.5) 04/22/17 07:20 Phosphorus 3.5 mg/dL (2.5-4.5) 04/22/17 07:20 Magnesium 1.9 mg/dL (1.7-2.2) 04/22/17 07:20 Total Bilirubin 1.3 mg/dL (0.2-1.3) 04/22/17 07:20 AST 38 U/L (17-59) 04/22/17 07:20 ALT 44 U/L (7-56) 04/22/17 07:20 Alkaline Phosphatase 55 U/L (38-126) 04/22/17 07:20 Total Protein 7.5 g/dL (5.8-8.3) 04/22/17 07:20 Albumin 4.5 g/dL (3.0-4.8) 04/22/17 07:20 Globulin 3.1 gm/dL 04/22/17 07:20 Albumin/Globulin Ratio 1.5 (1.1-1.8) 04/22/17 07:20 Urine Color Yellow (YELLOW) 04/21/17 21:40 Urine Appearance Sl cloudy (CLEAR) 04/21/17 21:40 Urine pH 7.5 (4.7-8.0) 04/21/17 21:40 Ur Specific [place] 1.015 (1.005-1.035) 04/21/17 21:40 Urine Protein Trace mg/dL (<30 mg/dL) H 04/21/17 21:40 Urine Glucose (UA) Negative mg/dL (NEGATIVE) 04/21/17 21:40 Urine Ketones Negative mg/dL (NEGATIVE) 04/21/17 21:40 Urine Blood Large (NEGATIVE) H 04/21/17 21:40 Urine Nitrate Negative (NEGATIVE) 04/21/17 21:40 Urine Bilirubin Negative (NEGATIVE) 04/21/17 21:40 Urine Urobilinogen 0.2 E.U./dL (<1 E.U./dL) 04/21/17 21:40 Ur Leukocyte Esterase Negative John/uL (NEGATIVE) 04/21/17 21:40 Urine RBC Tntc /hpf (0-2) 04/21/17 21:40 Urine WBC 2 - 5 /hpf (0-6) 04/21/17 21:40 Ur Epithelial Cells 3 - 4 /hpf (0-5) 04/21/17 21:40 Urine Bacteria Mod (NEG) 04/21/17 21:40 Attending/Attestation - Attestation I have personally seen and examined this patient.: Yes I have fully participated in the care of the patient.: Yes I have reviewed all pertinent clinical information, including history, physical exam and plan: Yes Notes (Text): 04/23/17 56 year old male with past medical history of hypertension and nephrolithiasis who presented with left flank pain. He was found to have 6mm stone with hydrouteronephrosis on CT scan. He was started on fluids and analgesics. He was seen by urology and underwent cystoscopy with left ureteral stent placement. He was also started on norvasc for hypertension and counselled on low salt diet. Patient is discharged home to follow up with pmd or [facility]. Follow up with urology tomorrow. Toi Moeller MD Hospitalist.
== END 2017-04-23 17:40 | disposition home or self-care (01) | DRG 324 ==
LOC: ED 20:43 → ERH 23:47 → 5RSO 04-22 03:11 → OBSVTOIN 04-22 18:31
PROVIDERS: ADMIT Internal Medicine; ATTEND Internal Medicine
PROC: 0T778DZ Dilation of Left Ureter with Intraluminal Device, Via Natural or Artificial Opening Endoscopic (ICD-10-PCS; principal; 2017-04-23 07:30)
DX: N13.2 Hydronephrosis with renal and ureteral calculous obstruction (principal); I10 Essential (primary) hypertension; Z87.442 Personal history of urinary calculi

== ENCOUNTER 2017-04-27 20:52 | Emergency (ER) | payer OTHER ==
[2017-04-27 20:52] VITALS: BMI 28.5
[2017-04-27 21:03] VITALS: RESP 16; TEMP 98.3
--- NOTE | 2017-04-27 21:23 | ED PDOC ---
Arrival/HPI - General Historian: Patient - History of Present Illness Time/Duration: < week Symptom Onset: Sudden Symptom Course: Unchanged Activities at Onset: Rest Context: Home - General Chief Complaint: ENT Problem Time Seen by Provider: 04/27/17 20:53 - History of Present Illness Narrative History of Present Illness (Text): 04/27/17 21:22 56yo M PMH HTN and nephrolithiasis s/p L stent placed for 6mm stone and hydronephrosis POD 3 presents with nasal congestion, fevers and headache x1 day. pt states that the surgery was not complicated and that he did not have any complaints the first 2 days. Pt states that he had hematuria that gradually resolved, and that he saw Dr. Gibbs POD1. Pt denies dysuria, hematuria, CVA tenderness or back pain, n/v/d, chest pain, cough, shortness of breath, abdominal pain, myalgias or pedal edema. pt is scheduled to come next Saturday for stent removal; he is unsure if he passed the stone or not. 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 pt denies ETOH, tobacco or substance use. pt has not had flu vaccine. pt states he has been taking his meds he was d/c on. (Lokesh Thurston) Past Medical History - Provider Review Nursing Documentation Reviewed: Yes - Past History Past History: Non-Contributing - Infectious Disease Hx of Infectious Diseases: None - Tetanus Immunization Tetanus Immunization: Unknown - Cardiac Hx Hypertension: Yes Hx Pacemaker: No - Pulmonary Hx Respiratory Disorders: No - Neurological Hx Neurological Disorder: No - HEENT Hx HEENT Disorder: No - Renal Hx Kidney Stones: Yes (L stent POD3) - Endocrine/Metabolic Hx Endocrine Disorders: No - Hematological/Oncological Hx Blood Disorders: No - Integumentary Hx Dermatological Disorder: No - Musculoskeletal/Rheumatological Hx Musculoskeletal Disorders: No - Gastrointestinal Hx Gastrointestinal Disorders: No - Genitourinary/Gynecological Hx Genitourinary Disorders: Yes Other/Comment: nephrolithiasis s/p stent POD3 - Psychiatric Hx Psychophysiologic Disorder: No Hx Substance Use: No - Surgical History Other/Comment: CYCSTOSCOPY w/ stent placement - Anesthesia Hx Anesthesia: Yes Hx Anesthesia Reactions: No Hx Malignant Hyperthermia: No Family/Social History - Physician Review Nursing Documentation Reviewed: Yes Family/Social History: No Known Family HX Smoking Status: Never Smoked Hx Alcohol Use: No Hx Substance Use: No Allergies/Home Meds Allergies/Adverse Reactions: Allergies Penicillins Allergy (Verified 04/27/17 20:53) RASH Home Medications: Home Meds Medication Instructions Recorded Confirmed Ciprofloxacin [Cipro] 500 mg PO Q12 04/27/17 04/27/17 traMADol/Acetaminophen [Ultracet 1 tab PO Q6 PRN 04/27/17 04/27/17 37.5/325 mg] Review of Systems - Physician Review All systems were reviewed & negative as marked: Yes - Review of Systems Constitutional: Fevers ENT: Sore Throat, Rhinorrhea Respiratory: absent: SOB, Cough, Wheezing Cardiovascular: absent: Chest Pain, Palpitations Gastrointestinal: absent: Diarrhea, Nausea, Vomiting Genitourinary Male: absent: Dysuria, Hematuria Physical Exam Vital Signs Reviewed: Yes Appearance: Positive for: Well-Appearing Pain Distress: None Mental Status: Positive for: Alert and Oriented X 3 - Systems Exam Head: Present: Atraumatic, Normocephalic Pupils: Present: PERRL Extroacular Muscles: Present: EOMI Mouth: Present: Moist Mucous Membranes Neck: Present: Normal Range of Motion Respiratory/Chest: Present: Clear to Auscultation, Good Air Exchange. No: Accessory Muscle Use, Wheezes Cardiovascular: Present: Regular Rate and Rhythm, Normal S1, S2 Abdomen: Present: Normal Bowel Sounds. No: Tenderness, Distention Back: Present: Normal Inspection. No: CVA Tenderness Upper Extremity: Present: Normal Inspection, Normal ROM Lower Extremity: Present: Normal Inspection. No: Edema, CALF TENDERNESS Neurological: Present: CN II-XII Intact, Speech Normal Skin: Present: Warm, Dry Psychiatric: Present: Alert, Oriented x 3 Vital Signs Temp Pulse Resp BP Pulse Ox 04/27/17 21:42 167/111 H 04/27/17 20:57 98.3 F 83 16 159/100 H 97 Medical Decision Making Re-evaluation Time: 22:49 Reassessment Condition: Re-examined, Unchanged - Lab Interpretations I have reviewed the lab results: Yes ED Course and Treatment: Impression: Pt seen and evaluated with registered medical transcriptionist. Pt, whose past medical history includes hypertension and kidney stones, presented for nasal congestion, fever, and headache for 2 days. Aware and agree with HPI, clinical findings, plan, and management. Plan: -- Labs, blood cultures -- Urinalysis, urine cultures -- Rapid influenza -- Tylenol -- Reassess and disposition (OdilonJoaquim) 04/27/17 21:50 Impression: 56 yo M PMH nephrolithiasis s/p cystoscopy and stent placement POD3 and HTN persenting with URI symptoms Plan: - Labs - blood and urine cxs - UA - rapid flu - tylenol - 04/27/17 22:49 Reassessment: rapid flu test was negative. pt complaining of nasal congestion. duonebs ordered. 04/27/17 23:52 Reassessment: pt feeling much better, and states congestion and headache have improved. pt instructed about continuing prior meds, especially for his HTN. ( Lokesh Thurston) - Lab Interpretations Lab Results: 04/27/17 21:25 04/27/17 21:25 Lab Results 04/27/17 22:15: Urine Color Yellow, Urine Appearance Sl cloudy, Urine pH 6.0, Ur Specific [place] <= 1.005, Urine Protein Trace H, Urine Glucose (UA) Negative , Urine Ketones Negative, Urine Blood Large H, Urine Nitrate Negative, Urine Bilirubin Negative, Urine Urobilinogen 0.2, Ur Leukocyte Esterase Small H, Urine RBC 2 - 5, Urine WBC 1 - 3, Ur Epithelial Cells 0 - 2 04/27/17 21:55: Influenza Typ A,B (EIA) Negative for flu a/b 04/27/17 21:25: Sodium 141, Potassium 3.5 L, Chloride 99, Carbon Dioxide 30, Anion Gap 16, BUN 19, Creatinine 1.3, Est GFR ( Amer) > 60, Est GFR (Non- Af Amer) 58, Random Glucose 92, Calcium 9.8, Total Bilirubin 1.0, AST 56, ALT 59 H, Alkaline Phosphatase 57, Total Protein 8.5 H, Albumin 5.0 H, Globulin 3.5 , Albumin/Globulin Ratio 1.4 04/27/17 21:25: WBC 8.6 D, RBC 4.72, Hgb 13.9 L, Hct 40.3 L, MCV 85.4, MCH 29.4 , MCHC 34.5, RDW 13.4, Plt Count 260, MPV 10.9, Gran % 52.6, Lymph % (Auto) 32.4 , [place] % (Auto) 10.4 H, Eos % (Auto) 4.3, Baso % (Auto) 0.3, Gran # 4.53, Lymph # 2.8, [place] # 0.9 H, Eos # 0.4, Baso # 0.03 - Medication Orders Current Medication Orders: Discontinued Medications Acetaminophen (Tylenol 325mg Tab) 650 mg PO STAT STA Stop: 04/27/17 21:21 Last Admin: 04/27/17 21:44 Dose: 650 mg MAR Pain/Vitals Document 04/27/17 21:44 GMD (Rec: 04/27/17 21:44 GMD [id number]) Pain Reassessment Is This A Pain ReAssessment? No Sleep Is patient sleeping during reassessment? No Presence of Pain Presence of Pain No Albuterol/Ipratropium (Duoneb 3 Mg/0.5 Mg (3 Ml) Ud) 3 ml IH STAT STA Stop: 04/27/17 22:52 Last Admin: 04/27/17 23:01 Dose: 3 ml Disposition/Present on Arrival - Present on Arrival Any Indicators Present on Arrival: No History of DVT/PE: No History of Uncontrolled Diabetes: No Urinary Catheter: No History of Decub. Ulcer: No History Surgical Site Infection Following: None - Disposition Have Diagnosis and Disposition been Completed?: Yes Disposition Time: 23:54 Patient Plan: Discharge - Disposition Diagnosis: Nasal congestion Disposition: HOME/ ROUTINE Condition: GOOD Discharge Instructions (ExitCare): Rhinosinusitis (ED) Additional Instructions: - please continue your home meds - please take your meds as prescribed if needed - if you experience any worsening of congestion, fevers/chills or any new issues , please return to ER for workup - please f/u with Dr. Gibbs for any urological issues Prescriptions: Fexofenadine/Pseudoephedrine [Joie-D 24 Hour Tablet] 1 each PO DAILY PRN #7 tab.er.24h PRN Reason: Cough And Congestion Referrals: PCP,NO [Primary Care Provider] - Follow up with primary [facility] [Outside] - Follow up with primary Forms: [employer] (Uzbek)
[2017-04-27 21:54] LABS: BASO # 0.03 K/mm3 (0.0-2.0); BASO % 0.3 % (0.0-3.0); EOS # 0.4 (0.0-0.7); EOS % 4.3 % (1.5-5.0); GRAN # 4.53 (1.4-6.5); GRAN % 52.6 % (50.0-68.0); HEMATOCRIT 40.3 % (42.0-52.0); LYMPH # 2.8 (1.2-3.4); LYMPH % 32.4 % (22.0-35.0); MEAN CELL VOLUME 85.4 fl (80.0-105.0); MEAN CORPUSCULAR HEMOGLOBIN 29.4 pg (25.0-35.0); MEAN CORPUSCULAR HGB CONC 34.5 g/dl (31.0-37.0); MEAN PLATELET VOLUME 10.9 fl (7.0-11.0); MONO # 0.9 (0.1-0.6); MONO % 10.4 % (1.0-6.0); RED CELL DISTRIBUTION WIDTH 13.4 % (11.5-14.5); WHITE BLOOD COUNT 8.6 10^3/ul (4.5-11.0)
[2017-04-27 22:03] LABS: ALB/GLOB RATIO 1.4 (1.1-1.8); ALKALINE PHOSPHATASE 57 U/L (38-126); ALT/SGPT 59 U/L (7-56); AST/SGOT 56 U/L (17-59); BLOOD UREA NITROGEN 19 mg/dL (7-21); CALCIUM 9.8 mg/dL (8.4-10.5); CARBON DIOXIDE 30 mmol/L (21-33); GFR AFRICAN-AMERICAN > 60; GLUCOSE,RANDOM 92 mg/dL (70-110); POTASSIUM 3.5 mmol/L (3.6-5.0); SODIUM 141 mmol/L (132-148); TOTAL PROTEIN 8.5 g/dL (5.8-8.3)
[2017-04-27 22:04] LABS: CHLORIDE 99 mmol/L (98-107)
[2017-04-27 22:38] LABS: URINE BILIRUBIN NEGATIVE (NEGATIVE); URINE BLOOD LARGE (NEGATIVE); URINE GLUCOSE (UA) NEGATIVE (NEGATIVE); URINE KETONE NEGATIVE (NEGATIVE); URINE LEUKOCYTE ESTERASE SMALL Leu/uL (NEGATIVE); URINE PROTEIN TRACE mg/dL (<30 mg/dL); URINE UROBILINOGEN 0.2 E.U./dL (<1 E.U./dL)
[2017-04-27] MEDS ORDERED: Albuterol-Ipratrop 3 mg / 0.5 (3 ml) UD IH STA (22:51)
[2017-04-27 22:58] LABS: URINE APPEARANCE SL CLOUDY (CLEAR); URINE COLOR YELLOW (YELLOW)
[2017-04-27 23:10] LABS: URINE EPITHELIAL CELLS 0 - 2 /hpf (0-5)
[2017-04-28 00:29] VITALS: BP 152/92; PULSE 84; O2SAT 99
== END 2017-04-28 00:29 | disposition home or self-care (01) ==
LOC: ED 20:52
DX: R09.81 Nasal congestion (principal); I10 Essential (primary) hypertension; Z88.0 Allergy status to penicillin; Z87.442 Personal history of urinary calculi